=== PATIENT | female | born 1955 | race Caucasian/White ===

== ENCOUNTER → 2021-06-15 | Outpatient (CLI) | payer MEDICARE ==
--- NOTE | 2021-06-15 12:37 | REP ---
INDICATION: URETERAL CALCULUS. COMPARISON: None. FINDINGS: KUB shows the intestinal gas pattern to be nonspecific. The organ silhouettes insofar as delineated are unremarkable. There is no evidence of free intraperitoneal air. There is a large round calcification in the left upper quadrant suspicious for a calcified splenic aneurysm. There are multiple pelvic calcifications which are round and most of which have lucent centers all suggestive of phleboliths. IMPRESSION: Nonspecific findings as described above. There are no priors for comparison. If clinically relevant obtain CT. <Electronically signed by Tony Pacheco > 06/15/21 [id number]
== END ==
LOC: M LAB 10:19 → M RAD 10:19
PROVIDERS: ATTEND Urology
DX: N20.1 Calculus of ureter (principal)